=== PATIENT | female | born 1990 | race African-American/Black ===

== ENCOUNTER 2020-10-23 19:16 | Emergency (ER) | payer OTHER ==
[2020-10-23 19:39] VITALS: BMI 27.3
[2020-10-23] MEDS ORDERED: ACETAMINOPHEN 1000 MG/100 ML VIAL (NON FORMULARY) IVPB ONE (20:50)
[2020-10-23] MEDS ORDERED: SODIUM CHLORIDE 0.9% 500 ML INFUS.BAG IV ONE (20:55)
[2020-10-23] MEDS ORDERED: LIDOCAINE 5% TOPICAL PATCH TP ONE (21:11)
[2020-10-23] MEDS ORDERED: ACETAMINOPHEN INJECTION 100 ML IVPB ONE (21:19)
[2020-10-23 21:45] LABS: BASO % 1.2 % (0-2.0); EOS % 2.9 % (0-4.5); HEMATOCRIT 32.1 % (32.4-45.2); HEMOGLOBIN 10.5 GM/dL (10.7-15.3); LYMPH % 33.9 % (8-40); MCH 25.8 pg (25.7-33.7); MCHC 32.7 g/dl (32.0-36.0); MEAN CELL VOLUME 78.8 fl (80-96); MEAN PLT VOLUME 8.5 fl (7.5-11.1); MONO % 8.8 % (3.8-10.2); NEUT % 53.2 % (42.8-82.8); PLATELET COUNT 248 10^3/uL (134-434); RBC 4.07 M/mm3 (3.60-5.2); RDW 15.7 % (11.6-15.6); WHITE BLOOD COUNT 4.8 K/mm3 (4.0-10.0)
[2020-10-23 21:56] LABS: CALCIUM 8.7 mg/dL (8.5-10.1)
[2020-10-23 22:00] LABS: BLOOD UREA NITROGEN 5.8 mg/dL (7-18); CREATININE 0.5 mg/dL (0.55-1.3)
[2020-10-23] MEDS ORDERED: LIDOCAINE 5% TOPICAL PATCH ONE (22:07)
[2020-10-23] MEDS ORDERED: diazePAM 2 MG TABLET PO ONE (22:47)
[2020-10-23] MEDS ORDERED: KETOROLAC TROMETHAMINE 15 MG/ML VIAL IVPUSH ONE (23:56)
[2020-10-24] MEDS ORDERED: diazePAM 2 MG TABLET ONE (00:03)
[2020-10-24] MEDS ORDERED: KETOROLAC TROMETHAMINE 15 MG/ML VIAL ONE (00:03)
[2020-10-24 01:40] VITALS: BP 114/70; PULSE 83; TEMP 98.4
[2020-10-24] MEDS ORDERED: LIDOCAINE PATCH REMOVAL MC ONE (10:00)
== END 2020-10-24 01:50 | disposition home or self-care (01) ==
LOC: JER 19:16
PROC: 3E0333Z Introduction of Anti-inflammatory into Peripheral Vein, Percutaneous Approach (ICD-10-PCS; principal; 2020-10-23)
PROC: 3E033GC Introduction of Other Therapeutic Substance into Peripheral Vein, Percutaneous Approach (ICD-10-PCS; 2020-10-23)
DX: Z04.1 Encounter for examination and observation following transport accident (principal); V89.2XXA Person injured in unspecified motor-vehicle accident, traffic, initial encounter; Y92.9 Unspecified place or not applicable
CPT/HCPCS: 36415; 72125-TC; 72128-TC; 72131-TC; 80048; 84703; 85025; 99285-25; J0131